=== PATIENT | female | born 1975 | race Caucasian/White ===

== ENCOUNTER 2016-12-22 21:27 | Emergency (ER) | payer MEDICAID ==
[~2016-12-22] VITALS: Ht 165.1 cm; Wt 65.8 kg
[~2016-12-22 21:27] MED LIST: ATIVAN0.5 MG ORAL; METFORMIN; NAPROXEN250 MG ORAL; penicillin
--- NOTE | 2016-12-22 22:11 | Emergency Room Report ---
History of Present Illness General Chief Complaint: Chest Pain Source: Patient Present Illness HPI The patient presents with left upper quadrant pain. This is been going on for several weeks. It's when she eats she feels a pressure it under her rib cage on the left-hand side it radiates to her back. She states that the pain at that time is associated with tingling in hands and feet. There's been no vomiting but she has nausea with this. She's had diarrhea. She had problems with indigestion before and was given a prescription for pantoprazole. She took aspirin earlier today and that helped somewhat. The patient returned recently from [facility]. She denies fever. She was not exposed to anything and drank bottled water. She was with her son and and he has been ill. No blood in his stool recently. She's had hemorrhoids in the past. She is not certain if she is . She denies any dysuria. There's no stress at this time. Seen at urgent care yesterday. They suggested she might have an enlarged spleen. 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 Reviewed Nursing Documentation: PMH: Agreed, PSxH: Agreed Nursing Documentation-PMH Past Medical History: No Stated History Review of Systems All Other Systems: negative except mentioned in HPI Physical Exam Vital Signs Date Time Temp Pulse Resp B/P Pulse Ox O2 Delivery O2 Flow Rate FiO2 12/22/16 21:31 98.2 78 16 104/70 98 Room Air Sp02 EP Interpretation: reviewed, normal General Appearance: well appearing, no apparent distress, GCS 15 Head: normocephalic Eyes: bilateral eye PERRL, bilateral eye anticteric, bilateral eye normal inspection ENT: moist mucus membranes Neck: supple Respiratory: lungs clear, normal breath sounds Cardiovascular #1: regular rate, rhythm Cardiovascular #2: 2+ radial (R) Gastrointestinal: normal inspection, normal bowel sounds, no mass, non- distended, no guarding, no rebound, tenderness - LUQ, other - cannot tell if enlarged spleen (feels normal) Musculoskeletal: back normal, gait/station normal, normal range of motion Neurologic: alert, oriented x3, grossly normal Psychiatric: mood/affect normal Skin: normal inspection, warm/dry Medical Decision Making Diagnostic Impression: Primary Impression: Abdominal pain Qualified Codes: R10.12 - Left upper quadrant pain Additional Impressions: Hyperventilation Diarrhea Qualified Codes: R19.7 - Diarrhea, unspecified ER Course Patient presents with left upper quadrant pain. She recently returned from [place]. Differential includes gastritis, GERD, gastroenteritis, pancreatitis, splenomegaly with possible parasitic disease. Evaluation is with labs including ultrasound of his pain. Patient receive IV hydration, Pepcid and Zofran. She is also complaining about killing her hands and feet. This sounds more like response with hyperventilation however when he to check electrolytes. In addition a test is to be performed. The patient had measurement of her spleen by ultrasound. It is normal size. The rest of the labs were unremarkable. She's not . The patient was improved with IV hydration and treatment. The patient is stable for outpatient observation and treatment. Laboratory Tests Test 12/22/16 21:30 12/22/16 22:30 Urine Color Pale yellow Urine Appearance Slightly cloudy Urine pH 9 (4.5-8.0) Urine Specific [place] 1.015 (1.005-1.035) Urine Protein Negative (NEGATIVE) Urine Glucose (UA) Negative (NEGATIVE) Urine Ketones Negative (NEGATIVE) Urine Occult Blood 5+ (NEGATIVE) H Urine Nitrite Negative (NEGATIVE) Urine Bilirubin Negative (NEGATIVE) Urine Urobilinogen Normal MG/DL (0.0-1.0) Urine Leukocyte Esterase 1+ (NEGATIVE) H Urine RBC 5-10 /HPF (0 - 2) H Urine WBC 2-4 /HPF (0 - 2) Urine Squamous Epithelial Cells Few /LPF (NONE/OCC) Urine Amorphous Sediment Few /LPF (NONE) H Urine Bacteria Few /HPF (NONE) Urine HCG, Qualitative Negative White Blood Count 5.8 K/UL (4.8-10.8) Red Blood Count 3.84 M/UL (4.20-5.40) L Hemoglobin 12.6 G/DL (12.0-16.0) Hematocrit 36.2 % (37.0-47.0) L Mean Corpuscular Volume 94 FL (80-99) Mean Corpuscular Hemoglobin 32.7 PG (27.0-31.0) H Mean Corpuscular Hemoglobin Concent 34.7 G/DL (32.0-36.0) Red Cell Distribution Width 11.1 % (11.6-14.8) L Platelet Count 241 K/UL (150-450) Mean Platelet Volume 6.7 FL (6.5-10.1) Neutrophils (%) (Auto) 50.1 % (45.0-75.0) Lymphocytes (%) (Auto) 38.3 % (20.0-45.0) Monocytes (%) (Auto) 7.6 % (1.0-10.0) Eosinophils (%) (Auto) 3.1 % (0.0-3.0) H Basophils (%) (Auto) 1.0 % (0.0-2.0) Sodium Level 141 mEQ/L (135-145) Potassium Level 4.1 mEQ/L (3.4-4.9) Chloride Level 105 mEQ/L (98-107) Carbon Dioxide Level 26 mEQ/L (20-30) Anion Gap 10 (5-15) Blood Urea Nitrogen 13 mg/dL (7-23) Creatinine 0.5 mg/dL (0.5-0.9) Estimate Glomerular Filtration Rate > 60 mL/min (>60) Glucose Level 84 mg/dL (74-106) Calcium Level 8.7 mg/dL (8.6-10.2) Total Bilirubin 0.2 mg/dL (0.0-1.2) Aspartate Amino Transferase (AST) 23 U/L (5-40) Alanine Aminotransferase (ALT) 11 U/L (3-33) Alkaline Phosphatase 33 U/L (35-104) L Total Protein 6.2 g/dL (6.6-8.7) L Albumin 3.7 g/dL (3.5-5.2) Globulin 2.5 g/dL Albumin/Globulin Ratio 1.4 (1.0-2.7) Lipase 41 U/L (< 60) Last Vital Signs Date Time Temp Pulse Resp B/P Pulse Ox O2 Delivery O2 Flow Rate FiO2 12/23/16 01:15 97.3 79 13 94/51 98 Room Air Status: improved Disposition: HOME, SELF-CARE Condition: Improved Scripts Acetaminophen (Tylenol) 325 Mg Tablet 650 MG ORAL Q6H Y for Prn Pain/Headache/Temp > 101, #30 TAB 0 Refills Prov: Sergio Burton M.D. 12/23/16 Ondansetron* (ZOFRAN*) 4 Mg/2 Ml Vial 4 MG IV Q8H Y for Nausea & Vomiting, #6 VIAL 1 Refill Prov: Sergio Burton M.D. 12/23/16 Famotidine (PEPCID) 20 Mg Tablet 20 MG ORAL DAILY, #20 TAB 0 Refills Prov: Sergio Burton M.D. 12/23/16 Sergio Burton M.D. Dec 22, 2016 22:11
[2016-12-22] MEDS ORDERED: Famotidine 20 MG/ 2ML VIAL IVP ONE (22:15)
[2016-12-22 22:54] LABS: APPEARANCE,URINE SLIGHTLY CLOUDY; KETONES,URINE NEGATIVE (NEGATIVE); LEUKOCYTE ESTERASE ,URINE 1+ (NEGATIVE); NITRITE,URINE NEGATIVE (NEGATIVE); PH,URINE 9 (4.5-8.0); PROTEIN,URINE NEGATIVE (NEGATIVE); UROBILINOGEN,URINE NORMAL MG/DL (0.0-1.0)
[2016-12-22 22:56] LABS: EOSINOPHILS % (AUTO) 3.1 % (0.0-3.0); LYMPHOCYTES % (AUTO) 38.3 % (20.0-45.0); MEAN CORPUSCULAR HEMOGLOBIN 32.7 PG (27.0-31.0); MEAN CORPUSCULAR HGB CONC 34.7 G/DL (32.0-36.0); MEAN CORPUSCULAR VOLUME 94 FL (80-99); MEAN PLATELET VOLUME 6.7 FL (6.5-10.1); MONOCYTES % (AUTO) 7.6 % (1.0-10.0); NEUTROPHILS % (AUTO) 50.1 % (45.0-75.0); PLATELET COUNT 241 K/UL (150-450); RED BLOOD COUNT 3.84 M/UL (4.20-5.40); RED CELL DISTRIBUTION WIDTH 11.1 % (11.6-14.8); WHITE BLOOD COUNT 5.8 K/UL (4.8-10.8)
[2016-12-22 23:08] LABS: AMORPHOUS SEDIMENT,UR FEW /LPF; BACTERIA,URINE FEW /HPF; SQUAMOUS EPITHELIAL CELL,UR FEW /LPF (NONE/OCC)
[2016-12-22 23:10] LABS: ALANINE AMINOTRANSFERASE 11 U/L (3-33); ALBUMIN/GLOBULIN RATIO 1.4 (1.0-2.7); ANION GAP 10 (5-15); ASPARTATE AMINO TRANSFERASE 23 U/L (5-40); CALCIUM 8.7 mg/dL (8.6-10.2); CARBON DIOXIDE 26 mEQ/L (20-30); CHLORIDE 105 mEQ/L (98-107); CREATININE 0.5 mg/dL (0.5-0.9); GLOMERULAR FILTRATION RATE > 60 mL/min (>60); HEMOLYSIS 106; LIPASE 41 U/L (< 60); POTASSIUM 4.1 mEQ/L (3.4-4.9); SODIUM 141 mEQ/L (135-145); TOTAL PROTEIN 6.2 g/dL (6.6-8.7)
[2016-12-22 23:24] VITALS: BP 98/71
[2016-12-23] MEDS ORDERED: TYLENOL325 MG ORAL (01:03)
[2016-12-23] MEDS ORDERED: PEPCID20 MG ORAL (01:03)
[2016-12-23] MEDS ORDERED: ZOFRAN 4 MG4 MG/2 ML IV (01:03)
[2016-12-23 01:10] VITALS: BP 94/51
[2016-12-23 01:15] VITALS: BP 94/51
== END 2016-12-23 01:15 | disposition home or self-care (01) ==
LOC: EMR 22:18
DX: R10.12 Left upper quadrant pain (principal); R06.4 Hyperventilation; R19.7 Diarrhea, unspecified
CPT/HCPCS: 36415; 80053; 81003; 81025; 83690; 85025; 96360; 96361; 96374; 96375; 99284; J2405; S0028